=== PATIENT | male | born 1950 | race Caucasian/White ===

== ENCOUNTER 2021-06-29 14:02 | Outpatient (CLI) | payer MEDICARE, SELFPAY ==
--- NOTE | ~2021-06-29 | XR_ITS ---
EXAMINATION: XR heel RT min 2V EXAM DATE: 06/29/2021 14:18 INDICATION: R heel pain, possible tendon rupture, stepped wrong 3 days ago. TECHNIQUE: Frontal and lateral projections of the thoracic spine as well as lateral swimmers projecti on of the upper thoracic spine for interpretation. Calcaneal frontal, dorsal plantar projections for interpretation. FINDINGS: Multiple calcifications along the right Achilles tendon, calcific tendinosis. Soft tissue s welling over the posterior aspect of the Achilles insertion, surrounding some of these calcifications . One of the calcifications has been indicated on the exam, with right angle which could indicate douglas t this is an acutely avulsed Achilles region of enthesopathy. There is small inferior calcaneal spur. Mild Matt deformity. IMPRESSION: Possible acute right Achilles enthesopathy avulsion. Additional rounded calcifications co uld be chronic Achilles calcific tendinosis. Reviewed, dictated and finalized at location A. SFER ENGINEER IMPRESSION: Possible acute right Achilles enthesopathy avulsion. Additional rou nded calcifications could be chronic Achilles calcific tendinosis.
== END 2021-06-29 14:03 | disposition home or self-care (01) ==
LOC: CHSIMG 14:05
PROVIDERS: PCP Internal Medicine; Visit Provider Internal Medicine
DX: M79.671 Pain in right foot (principal)
CPT/HCPCS: 73650

== ENCOUNTER 2021-07-04 10:01 | Outpatient (CLI) | payer MEDICARE, SELFPAY ==
--- NOTE | ~2021-07-04 | MR_ITS ---
EXAMINATION: MR ankle RT wo con DATE: 07/04/2021 10:51 INDICATION: Right heel pain TECHNIQUE: Magnetic resonance imaging (MRI) of the right ankle was performed without intravenous cont rast. Sequences included sagittal, coronal, and axial proton-density weighted fast spin echo without and with fat saturation. COMPARISON: None. FINDINGS: Medial ankle ligaments: Deep and superficial deltoid ligaments as well as the spring ligament are normal. Lateral ankle ligaments: The anterior and posterior inferior tibiofibular ligaments are normal. The calcaneofibular and talent director ior talofibular ligaments are normal. There is heterotopic ossification along the otherwise intact ap pearing anterior talofibular ligament consistent with sequela of chronic partial tear. Tendons: Moderate thickening of the distal Achilles tendon with multiple foci of susceptibility artifact along the posterior aspect of the tendon likely sequela of prior repair. There are also small regions of i ncreased signal in the distal tendon likely corresponding to the heterotopic ossification seen at thi s location on the prior radiographs. No evident residual/recurrent tendon tear. Small enthesophyte at its calcaneal insertion. The peroneus longus and brevis tendons are normal. The tibialis anterior an d extensor hallucis longus and extensor digitorum longus tendons are normal. The tibialis posterior, flexor digitorum longus and flexor hallucis longus tendons are normal. Plantar fascia: Mild thickening and mild increased signal of the proximal plantar aponeurosis with moderate-sized ent hesophyte at its calcaneal origin consistent with chronic enthesopathy. No associated marrow edema garza rrounding soft tissue edema to suggest acute plantar fasciitis. Bones/other: Bone alignment is normal. Small low signal intensity bone island at the medial calcaneus. Normal ara ow signal with no fracture or pathologic marrow replacing process. Joint spaces are normal. Fluid: Physiologic amount of fluid in the joint space. No tenosynovitis, bursitis or other abnormal likely f luid collections. Mild soft tissue edema in the subcutaneous fat and Kager's fat pad posterior to the ankle. IMPRESSION: 1. Moderate Achilles tendinosis with heterotopic ossification and tiny foci of susceptibility artifac t consistent with given history of prior Achilles tendon surgery. No findings to suggest residual/rec urrent tear. 2. Heterotopic ossification along the otherwise intact appearing anterior talofibular ligament likely sequela of chronic partial tear. 3. Mild chronic enthesopathy at the calcaneal origin of the plantar aponeurosis. Reviewed, dictated and finalized at location A. E BEATER IMPRESSION: 1. Moderate Achilles tendinosis with heterotopic ossification and tiny foci of susceptibility artifact consistent with given history of prior Achilles tendon surgery. No findings to suggest residual/recurrent tear. 2. Heterotopic ossification along the otherwise intact appearing anterior talof ibular ligament likely sequela of chronic partial tear. 3. Mild chronic enthesopathy at the calcaneal origin of the plantar aponeurosis .
== END 2021-07-04 10:02 | disposition home or self-care (01) ==
LOC: CHSIMG 10:03
PROVIDERS: PCP Internal Medicine; Visit Provider Internal Medicine
DX: M79.671 Pain in right foot (principal)
CPT/HCPCS: 73721

== ENCOUNTER 2021-07-08 08:55 | Outpatient (RCR) | payer MEDICARE, SELFPAY ==
--- NOTE | 2021-07-08 10:23 | PTOPEVAL ---
Thank you for referring Micha Castellanos to [facility].? The patient is scheduled to be seen for therapy? _2___x/week for 10 visits. Please review, sign, date and return this plan of care ROLY. I agree with and certify that the following plan of care is medically necessary. Referring Physician Date Admitting Provider: Attending Provider: Jesse Roth MD Referring Provider: *PT Outpatient Evaluation Start: 07/08/21 09:02 Freq: Status: Active Protocol: Document 07/08/21 09:04 MARY GRACE (Rec: 07/08/21 09:40 MARY GRACE [id number]) Therapy Assessment Status Assessment Status Assessment Status Evaluation Evaluation Information Problem Diagnosis right foot tendonitis Onset 06/24/21 Subjective Information Pt. reports that he has Query Text:As Reported By Patient/ noticed a increasing ankle and Family foot pain after trying to smash a cane in May. He describes pain in the area of the inside of the right foot at at the achilles tendon. He states that pain is only noticed with walking and standing. He reports that he has been avoiding any agressive activity as of recently. He reports that he has been unable to stand long enough to complete normal tasks due to pain. He states his goal is to reduce his foot pain and stand longer. Prior Level of Function Activity Level (Last 3 Months) Occupation retired Hand Dominance Right Activity of Daily Living Ability Independent Indoor/Home Mobility Independent Community Mobility Independent Stairs Ability Independent Functional Cognition (Planning, Shopping Independent , Taking Medications) Cooking Yes Cleaning Yes Laundry Yes Shopping Yes Driving Yes Pain Assessment Timing of Pain Assessment Timing of Pain Assessment Pre-Treatment Pain Scale Pain Scale Used Numeric (1 - 10) Self Report Pain Assessment Right Heel(s) Reported Pain Level 3 Lowest Pain Intensity 2 Greatest Pain Intensity 10 Pain Aggravating Factors Exercise/Activity,Prolonged Position,Stair Climbing, Walking,W
== END 2021-08-03 10:41 | disposition home or self-care (01) ==
LOC: CHSPT 08:55
PROVIDERS: PCP Internal Medicine; Visit Provider Internal Medicine
DX: M77.9 Enthesopathy, unspecified (principal)
CPT/HCPCS: 97014; 97110; 97140; 97161; G0283

== ENCOUNTER 2024-02-03 09:59 | Outpatient (CLI) | payer MEDICARE, SELFPAY ==
--- NOTE | ~2024-02-03 | XR_ITS ---
Left Knee Technique: AP, lateral, and sunrise views were obtained. Clinical History: Pain Findings: No fracture or dislocation is seen. Osseous alignment is anatomic. Joint spaces are preserv ed without degenerative or erosive change. Chondrocalcinosis of the menisci noted. Probable moderate joint effusion is seen. Impression: Chondrocalcinosis of the menisci. Probable moderate joint effusion. Reviewed, dictated and finalized at location . Impression: Chondrocalcinosis of the menisci. Probable moderate joint effusion.
== END 2024-02-03 10:00 | disposition home or self-care (01) ==
LOC: CHSIMG 10:03
PROVIDERS: PCP Internal Medicine; Visit Provider Nurse Practitioner Family
DX: M25.562 Pain in left knee (principal); M79.89 Other specified soft tissue disorders; M11.262 Other chondrocalcinosis, left knee
CPT/HCPCS: 73562

== ENCOUNTER 2024-03-16 09:04 | Outpatient (CLI) | payer MEDICARE, SELFPAY ==
--- NOTE | ~2024-03-16 | XR_ITS ---
EXAMINATION: XR hand RT min 3V DATE: 03/16/2024 09:27 INDICATION: Right hand pain. TECHNIQUE: 4 views of right hand were obtained. COMPARISON: None. FINDINGS: Alignment is normal. No fracture. There is moderate osteoarthritis of distal radioulnar jed nt, severe osteoarthritis of radiolunate joint, mild osteoarthritis of first carpometacarpal joint an d triscaphe joint. There is mild to moderate osteoarthritis of many of the metacarpophalangeal joints and interphalangeal joints. There is severe osteoarthritis of second distal interphalangeal joint. T here are dystrophic calcifications palmar to the carpus. IMPRESSION: 1. Polyarticular osteoarthritis. Reviewed, dictated and finalized at location A.
--- NOTE | ~2024-03-16 | XR_ITS ---
EXAMINATION: XR wrist RT min 3V DATE: 03/16/2024 09:27 INDICATION: Right wrist and hand pain. TECHNIQUE: 4 views of right wrist were obtained. COMPARISON: Right hand radiographs 11/03/2018 FINDINGS: Alignment is normal. No fracture. There is moderate osteoarthritis of distal radioulnar jed nt, severe osteoarthritis of radiolunate joint, mild osteoarthritis of triscaphe joint and first carp ometacarpal joint, and mild osteoarthritis of first-fourth metacarpophalangeal joints. There are dyst rophic calcifications palmar to the carpus. IMPRESSION: 1. Polyarticular osteoarthritis. Reviewed, dictated and finalized at location A.
== END 2024-03-16 09:05 | disposition home or self-care (01) ==
LOC: CHSIMG 09:07
PROVIDERS: PCP Internal Medicine; Visit Provider Internal Medicine
DX: M25.531 Pain in right wrist (principal); M79.641 Pain in right hand; M19.041 Primary osteoarthritis, right hand; M19.031 Primary osteoarthritis, right wrist
CPT/HCPCS: 73110; 73130

== ENCOUNTER 2024-03-31 07:22 | Outpatient (CLI) | payer MEDICARE, SELFPAY ==
--- NOTE | ~2024-03-31 | MR_ITS ---
MRI of the right wrist Technique: Coronal T1 weighted and proton density fat sat images, and axial and sagittal proton-densi ty and proton-density fat-sat images were acquired. Clinical History: Pain Findings: There is probable degenerative signal of the scapholunate ligament, without definite tear. No widening of the scapholunate interval. Lunotriquetral ligament probably intact. There is mild dege nerative change of the TFCC, without definite full-thickness tear or perforation. There is advanced degenerative change of the radiolunate articulation, with joint space narrowing and extensive high-grade chondromalacia. There is subchondral reactive marrow edema and cystic change of the distal radius and in the lunate. There are mild degenerative changes of the lunotriquetral artic ulations, as well as the capitate hamate articulations. There is mild degenerative change of the denisa caphe joint and first CMC joint. No distinct erosive change. No acute fracture or dislocation. Flexor tendons in the carpal tunnel are unremarkable. Extensor tendons are intact. There is a lobulat ed ganglion cyst along the volar aspect of the distal radius measuring approximately 2.6 cm in longit udinal extent. IMPRESSION: Polyarticular osteoarthritis of the wrist, worst at the radiolunate articulation. Please see details above. Probable 2.6 mm lobulated ganglion cyst along the volar aspect of the distal radius. Reviewed, dictated and finalized at [facility]. IMPRESSION: Polyarticular osteoarthritis of the wrist, worst at the radiolunate articulatio n. Please see details above. Probable 2.6 mm lobulated ganglion cyst along the volar aspect of the distal ra dius.
== END 2024-03-31 07:23 | disposition home or self-care (01) ==
LOC: CHSIMG 07:25
PROVIDERS: PCP Internal Medicine; Visit Provider Internal Medicine
DX: M25.531 Pain in right wrist (principal); M19.031 Primary osteoarthritis, right wrist
CPT/HCPCS: 73221

== ENCOUNTER 2025-04-23 09:22 | Outpatient (CLI) | payer MEDICARE, SELFPAY ==
--- NOTE | 2025-04-23 | CONSULT_PTH ---
PATIENT: Micha Castellanos LOC: [facility] U#:[id number] AGE/SX: 74/M ROOM: RE04/23/[address]: Jesse Roth MD : 1950 BED: DIS: 04/23/2025 SPEC #: [id number] RECD: 04/23/25 11:18 STATUS: FLORES RERaj #: [id number] WALLY: 04/23/25 00:[address]: Jesse Roth DEPT: [facility] Consult RECD BY: Debi Larsen MLT, ([facility]) Tissues: A - Path Review Slide Procedures: Pathologist Review Slide
--- OUTSIDE RECORDS SUMMARY | 2025-04-23 10:18 | XMS_ITS | Clinical Summary ---
Author Organization [address] Address [address] [place] [id number] Care Team Providers Care Sheriff Detective Name Role Phone Jesse Roth MD Primary Care Provider [phone] Joey RIVERA MD, Jhon Arauz Unavailable [phone] Allergies No known active allergies Medications atorvastatin (LIPITOR) 20 mg tabletIndications:h yperlipidemia Take 1 tablet (20 mg total) by mouth nightly 10/28/19 21 Active atenoloL (TENORMIN) 25 mg tabletIndications:b p Take by mouth daily Active loratadine 10 mg capsuleIndications: sinus problems Take 10 mg by mouth weight reducing technician before breakfast Active aspirin 81 mg chewable tabletIndications:C erebral Thromboembolism Prevention Take 1 tablet (81 mg total) by mouth daily Active carvediloL (COREG) 6.25 mg tablet 06/29/19 22 Active amLODIPine (NORVASC) 10 mg tablet 05/04/20 22 Active carvediloL (COREG) 12.5 mg tablet 07/03/19 23 Active fluticasone propionate (FLONASE) 50 mcg/actuation nasal sprayIndications:Na alejandro polyps Administer 2 sprays into each nostril daily 1 each 5 08/24/19 23 Active montelukast (SINGULAIR) 10 mg tabletIndications:N zuleyma polyps TAKE 1 TABLET(10 MG) BY MOUTH DAILY 30 tablet 5 12/03/19 23 Active triamterene-hydroCH LOROthiazide 37.5-25 mg per capsule Take 1 tablet/capsule by mouth every morning 10/28/19 23 Active Active Problems Problem Noted Date Diagnosed Date Chronic ethmoidal sinusitis 12/17/2020 Chronic maxillary sinusitis 12/17/2020 Chronic frontal sinusitis 12/17/2020 Chronic pansinusitis 11/18/2020 Nasal polyps 11/18/2020 Immunizations Immunization Administration Dates Next Due Pfizer SARS-CoV-2 Monovalent Vaccination (12+ Yrs) PURPLE 10/01/2020,09/03/2020 Surgical History Surgery Date Site/Laterality Comments HERNIA REPAIR ACHILLES TENDON REPAIR CATARACT EXTRACTION SINUS SURGERY BOWEL RESECTION bowel obstruction required surgery BACK SURGERY 06/27/1974 - 06/26/1975 SPINE SURGERY Medical History Medical History Date Comments Hypertension Sinusitis Hyperlipidemia Allergic rhinitis Chronic sinus infection recurren t, when takken off steroids, returns Family History Medical History Relation Name Comments Cancer Mother Heart disease Mother Relation Name Status Comments Mother Social History Tobacco Use Types Packs/Day Years Used Date Smoking Tobacco: Never Smokeless Tobacco: Never AUDIT-C Answer Date Recorded Q1: How often do you have a drink containing alc ohol? 2-3 times a week 12/15/2020 Q2: How many drinks containi ng alcohol do you have on a typical day when you are drinking? 1 or 2 12/15/2020 Q3: How often do you have si x or more drinks on one occasion? 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 Respiratory Rate 18 01/04/2023 10:48 AM CDT Oxygen Saturation 96% 12/17/2020 11:45 AM CDT Inhaled Oxygen Concentration - - Weight 104.3 kg (230 lb) 01/04/2023 10:48 AM CDT Height 154.9 cm (5' 1) 01/04/2023 10:48 AM CDT Body Mass Index 43.46 01/04/2023 10:48 AM CDT Plan of Treatment Health Maintenance Due Date Last Done Comments Colon Cancer Screening-Colonoscopy 1950 Depression Screening 1950 Hepatitis C Screening 1950 DTaP/Tdap/Td Vaccine (1 - Tdap) 10/08/1962 Hepatitis B Screening 10/08/1969 Zoster Vaccine (1 of 2) 10/08/2001 Abdominal Aortic Aneurysm (AAA) Screen 10/08/2016 Well Visit 65+ 10/08/2016 Pneumococcal vaccine 65+ (2 of 2 - PCV) 01/03/2019 0 01/03/2018 Fall Risk Assessment 12/17/2021 12/17/2020 Covid-19 Vaccine (3 - season) 02/25/202512/2020, 09/03/2020 Influenza Vaccine (#1) 2025 03/23/2019 Insurance MEDICARE [facility] MEDICARE [facility] MEDICARE Care Teams Sheriff Detective Relationship Specialty Start Date End Date Jesse Roth MD PCP - General Internal Medicine 11/29/19 Jhon Cook II, MD Consulting Physician Otolaryngology 12/17/20
== END 2025-04-23 09:23 | disposition home or self-care (01) ==
LOC: CHSLAB 09:25
PROVIDERS: PCP Internal Medicine; Visit Provider Internal Medicine
DX: R21 Rash and other nonspecific skin eruption (principal)
CPT/HCPCS: 88321